=== PATIENT | male | born 1940 ===

== ENCOUNTER 2019-01-03 10:47 | Outpatient (CLI) | payer OTHER ==
[2019-01-05] MEDS ORDERED: BUTALB-ACETAMI1 EACH PO (00:15)
[2019-01-05] MEDS ORDERED: ZOFRAN ODT4 MG SL (00:15)
== END 2019-01-03 17:00 | disposition home or self-care (01) ==
LOC: TOM 10:47
DX: G91.0 Communicating hydrocephalus (principal)

== ENCOUNTER → 2019-01-04 | Emergency (ER) | payer OTHER ==
[~2019-01-04] VITALS: Ht 165.1 cm; Wt 70.3 kg
[~2019-01-04] MED LIST: BUTALB-ACETAMI1 EACH PO; ZOFRAN ODT4 MG SL
== END | disposition home or self-care (01) ==
LOC: ER 19:45
DX: G44.209 Tension-type headache, unspecified, not intractable (principal); K29.70 Gastritis, unspecified, without bleeding; G30.9 Alzheimer's disease, unspecified; F02.80 Dementia in other diseases classified elsewhere, unspecified severity, without behavioral disturbance, psychotic disturbance, mood disturbance, and anxiety; Z86.73 Personal history of transient ischemic attack (TIA), and cerebral infarction without residual deficits

== ENCOUNTER 2019-01-09 10:27 | Outpatient (CLI) | payer OTHER | END 2019-01-09 10:33 | disposition home or self-care (01) | LOC: RAD 10:27 | DX: R07.89 Other chest pain (principal) ==

== ENCOUNTER 2019-01-17 09:45 | Outpatient (CLI) | payer OTHER | END 2019-01-17 10:00 | disposition home or self-care (01) | LOC: NUCLEAR 09:45 | DX: I87.2 Venous insufficiency (chronic) (peripheral) (principal) ==